=== PATIENT | male | born 2000 | race Caucasian/White ===

== ENCOUNTER 2023-06-11 02:51 | Emergency (ER) | payer OTHER ==
[2023-06-11] MEDS ORDERED: Lidocaine 1% PF 5 ML VIAL ONE (03:39)
== END 2023-06-11 04:00 | disposition home or self-care (01) ==
LOC: CSHERS 02:51
DX: S01.511A Laceration without foreign body of lip, initial encounter (principal); F17.290 Nicotine dependence, other tobacco product, uncomplicated; W26.8XXA Contact with other sharp object(s), not elsewhere classified, initial encounter
CPT/HCPCS: 12011; 99282